=== PATIENT | male | born 1955 | race Two or more races ===

== ENCOUNTER → 2017-05-20 | Outpatient (CLI) | payer MEDICAID ==
[~2017-05-20] MED LIST: ADENOSINE 71 MG in GIVE UN-DILUTED 0 ML IV ONE; ADENOSINE 90 MG/30 ML INJ IV ONE
[2017-05-20 12:08] LABS: Basophils # (auto) 0 uL; Basophils % (auto) 0.6 % (0.0-2.0); Eosinophils # (auto) 0.1 uL; Eosinophils % (auto) 1.9 % (0.0-7.0); Hemoglobin 14.3 g/dL (13.5-17.5); Lymphocytes # (auto) 1.7 uL; Mean Corpuscular Hemoglobin 29.4 pg (28.0-32.0); Mean Corpuscular Hgb Conc. 32.5 g/dL (32.0-36.0); Mean Corpuscular Volume 90.4 fL (80.0-100.0); Monocytes # (auto) 0.6 uL; Monocytes % (auto) 12.6 % (0.0-12.0); Neutrophils # (auto) 2.5 uL; Neutrophils % (auto) 50.9 % (37.0-80.0); Nucleated Red Blood Cells % 0.3 %; Platelet Count (auto) 141 10^3/uL (140-450); Red Blood Cells 4.87 10^6/uL (4.5-5.90); Red Cell Distribution Width 14.9 % (11.8-14.3); White Blood Cell 4.9 10^3/uL (4.4-10.8)
[2017-05-20 12:25] LABS: Prostate Specific Antigen 1.22 ng/mL (0.0-4.0)
[2017-05-20 12:26] LABS: Albumin 3.4 g/dL (3.4-5.0); BUN/Creatinine Ratio 9.9; Bilirubin, Total 0.5 mg/dL (0.2-1.0); Calcium 8.4 mg/dL (8.5-10.1); Potassium 3.5 mmol/L (3.5-5.1)
== END | disposition home or self-care (01) ==
LOC: Rad HDHVI 08:10
PROVIDERS: ATTEND Internal Medicine
DX: E78.5 Hyperlipidemia, unspecified (principal); D64.9 Anemia, unspecified; I10 Essential (primary) hypertension; E03.9 Hypothyroidism, unspecified; E11.9 Type 2 diabetes mellitus without complications; E55.9 Vitamin D deficiency, unspecified; R53.81 Other malaise; R97.20 Elevated prostate specific antigen [PSA]; D51.9 Vitamin B12 deficiency anemia, unspecified; N39.0 Urinary tract infection, site not specified; R47.1 Dysarthria and anarthria; Z87.898 Personal history of other specified conditions; Z86.73 Personal history of transient ischemic attack (TIA), and cerebral infarction without residual deficits
CPT/HCPCS: 36415; 78452; 80053; 80061; 82306; 82607; 83036; 84153; 84403; 84439; 84443; 85025; 93005; 96374; 96375; A9500; J0153

== ENCOUNTER → 2017-06-03 | Outpatient (CLI) | payer MEDICAID | END | disposition home or self-care (01) | LOC: Rad HDHVI 15:46 | PROVIDERS: ATTEND Internal Medicine | DX: I07.1 Rheumatic tricuspid insufficiency (principal); E78.5 Hyperlipidemia, unspecified; I10 Essential (primary) hypertension; E11.9 Type 2 diabetes mellitus without complications; R47.1 Dysarthria and anarthria | CPT/HCPCS: 93306 ==

== ENCOUNTER 2017-06-14 21:26 | Emergency (ER) | payer MEDICAID, MEDICARE ==
[~2017-06-14] VITALS: Ht 182.9 cm; Wt 74.8 kg
[2017-06-14 21:55] VITALS: BP 105/84
[2017-06-16] MEDS ORDERED: LISI-646 PO (03:07)
== END 2017-06-15 00:25 | disposition left against medical advice (07) ==
LOC: ER 21:26
DX: R11.2 Nausea with vomiting, unspecified (principal); Z53.21 Procedure and treatment not carried out due to patient leaving prior to being seen by health care provider
CPT/HCPCS: 71046

== ENCOUNTER 2017-06-15 13:40 | Inpatient (IN) | payer MEDICARE, MEDICAID ==
[~2017-06-15] VITALS: Ht 182.9 cm; Wt 82.0 kg
[2017-06-15 14:43] LABS: Basophils # (auto) 0.3 uL; Eosinophils # (auto) 0.1 uL; Hematocrit 48.1 % (41.0-53.0); Hemoglobin 15.8 g/dL (13.5-17.5); Lymphocytes # (auto) 1.1 uL; Lymphocytes % (auto) 11.1 % (10.0-50.0); Mean Corpuscular Hemoglobin 29.7 pg (28.0-32.0); Mean Corpuscular Hgb Conc. 32.9 g/dL (32.0-36.0); Mean Corpuscular Volume 90.5 fL (80.0-100.0); Monocytes # (auto) 1.6 uL; Monocytes % (auto) 16.9 % (0.0-12.0); Neutrophils # (auto) 6.5 uL; Platelet Count (auto) 200 10^3/uL (140-450); Red Blood Cells 5.32 10^6/uL (4.5-5.90); Red Cell Distribution Width 13.1 % (11.8-14.3); White Blood Cell 9.6 10^3/uL (4.4-10.8)
[2017-06-15 15:06] LABS: Alanine Aminotransferase 80 U/L (16-61); Albumin 3.6 g/dL (3.4-5.0); Alkaline Phosphatase 65 U/L (45-117); Anion Gap 12 (5-15); Aspartate Aminotransferase 56 U/L (15-37); BUN/Creatinine Ratio 12.4; Bilirubin, Total 0.9 mg/dL (0.2-1.0); Blood Urea Nitrogen 18 mg/dL (7-18); Calcium 9.7 mg/dL (8.5-10.1); Carbon Dioxide 26 mmol/L (21-32); Chloride 97 mmol/L (98-107); GFR African American 63 mL/min; GFR Non-African American 52 mL/min; Glucose 117 mg/dL (74-106); Magnesium 2.4 mg/dL (1.6-2.6); Potassium 3.6 mmol/L (3.5-5.1); Sodium 135 mmol/L (136-145); Total Protein 7.8 g/dL (6.4-8.2)
[2017-06-15] MEDS ORDERED: SODIUM CHLORIDE 0.9% 1,000 ML IV ONE (15:44)
[2017-06-15] MEDS ORDERED: SODIUM CHLORIDE 0.9% 1,000 ML IVB ONE (16:38)
[2017-06-15] MEDS ORDERED: PROMETHAZINE HCL 25 MG/ML 1ML IV PRN (16:45)
[2017-06-15 17:12] LABS: Urine Bacteria NONE SEEN /hpf (None Seen); Urine Blood Negative /uL (Negative); Urine Hyaline Cast MOD /lpf (0 - 2); Urine Mucus FEW (None Seen); Urine Specific Gravity 1.031 (1.001-1.035); Urine WBC 4 /hpf (0 - 3)
[2017-06-15] MEDS ORDERED: MORPHINE SULFATE 4 MG/ML SYR/VIAL IV PRN ×2 (18:30)
[2017-06-15] MEDS ORDERED: NITROGLYCERIN 0.4 MG SL TAB SL PRN (18:30)
[2017-06-15] MEDS ORDERED: cefTRIAXone 1GM/10ml IVPUSH 10 ML IV ONE (18:30)
[2017-06-15] MEDS ORDERED: LORazepam 0.5 MG TAB PO PRN (18:30)
[2017-06-15] MEDS ORDERED: LACTULOSE 20Gm/30ML SOLN PO PRN (18:30)
[2017-06-15] MEDS: SODIUM CHLORIDE 0.9% 1,000 ML IV SCH (18:49)
[2017-06-15] MEDS: ENOXAPARIN SOD 40 MG/0.4 ML SYRINGE SC SCH (18:51)
[2017-06-15] MEDS: PANTOPRAZOLE 40 MG TAB PO SCH (18:51)
[2017-06-15 19:03] LABS: INR 0.96 (0.9-1.15); Partial Thromboplastin Time 26.8 sec (22.64-33.71); Prothrombin Time 10.5 sec (9.37-12.3)
[2017-06-15] MEDS: PROMETHAZINE HCL 25 MG/ML 1ML IV PRN (20:22)
[2017-06-15 22:15] VITALS: BP 98/63
[2017-06-15 22:30] VITALS: BP 98/63
[2017-06-16] MEDS ORDERED: LISI-646 PO (03:07)
[2017-06-16 05:00] VITALS: BP 120/75
[2017-06-16] MEDS: SODIUM CHLORIDE 0.9% 1,000 ML IV SCH (05:12)
[2017-06-16] MEDS: PROMETHAZINE HCL 25 MG/ML 1ML IV PRN ×3 (05:15→19:19)
[2017-06-16 07:21] LABS: Albumin 2.7 g/dL (3.4-5.0); BUN/Creatinine Ratio 13.1; Bilirubin, Total 0.7 mg/dL (0.2-1.0); Calcium 8.6 mg/dL (8.5-10.1); Potassium 3.2 mmol/L (3.5-5.1); Total Protein 5.8 g/dL (6.4-8.2)
[2017-06-16 09:00] VITALS: BP 108/72
[2017-06-16] MEDS ORDERED: POTASSIUM CHL 10% (20 MEQ/15ML) 15ml ORAL SOLN PO ONE (09:00)
[2017-06-16] MEDS ORDERED: cefTRIAXone 1GM/10ml IVPUSH 10 ML IV SCH (09:00)
[2017-06-16] MEDS: PANTOPRAZOLE 40 MG TAB PO SCH ×2 (09:43→22:52)
[2017-06-16] MEDS: D5W/ SOD CHL 0.9%/KCL 20MEQ 1,000 ML IV SCH ×2 (09:45→19:08)
[2017-06-16] MEDS: CARVEDILOL 3.125 MG TAB PO SCH ×2 (10:00→22:00)
[2017-06-16 17:00] VITALS: BP 122/75
[2017-06-16] MEDS: ENOXAPARIN SOD 40 MG/0.4 ML SYRINGE SC SCH (18:00)
[2017-06-16 22:00] VITALS: BP 133/89
[2017-06-16] MEDS: TEMAZEPAM 15 MG CAP PO PRN (22:53)
[2017-06-17 05:00] VITALS: BP 160/91
[2017-06-17] MEDS: D5W/ SOD CHL 0.9%/KCL 20MEQ 1,000 ML IV SCH ×2 (05:26→17:48)
[2017-06-17 06:49] LABS: Basophils # (auto) 0.1 uL; Basophils % (auto) 0.8 % (0.0-2.0); Eosinophils # (auto) 0.1 uL; Eosinophils % (auto) 1.1 % (0.0-7.0); Hematocrit 40.5 % (41.0-53.0); Hemoglobin 13.3 g/dL (13.5-17.5); Lymphocytes # (auto) 1.5 uL; Mean Corpuscular Hemoglobin 29.7 pg (28.0-32.0); Mean Corpuscular Hgb Conc. 32.9 g/dL (32.0-36.0); Mean Corpuscular Volume 90.4 fL (80.0-100.0); Monocytes % (auto) 14.2 % (0.0-12.0); Neutrophils # (auto) 4.3 uL; Neutrophils % (auto) 61.9 % (37.0-80.0); Nucleated Red Blood Cells % 0.1 %; Platelet Count (auto) 156 10^3/uL (140-450); Red Blood Cells 4.48 10^6/uL (4.5-5.90); Red Cell Distribution Width 13.1 % (11.8-14.3)
[2017-06-17 07:04] LABS: Potassium 4.2 mmol/L (3.5-5.1)
[2017-06-17 07:08] LABS: Calcium 8.6 mg/dL (8.5-10.1)
[2017-06-17] MEDS ORDERED: MIDAZOLAM HCL 5 MG/ML-1ML VIAL ONE ×2 (08:32→12:40)
[2017-06-17] MEDS ORDERED: LIDOCAINE VISCOUS 2% 15ML UD ONE ×2 (08:32→12:40)
[2017-06-17] MEDS ORDERED: diphenhdrAMINE HCL 50 MG/1 ML VL ONE ×2 (08:32→12:40)
[2017-06-17] MEDS ORDERED: fentaNYL CITRATE 100 MCG/2 ML VL ONE ×2 (08:33→12:40)
[2017-06-17 09:00] VITALS: BP 149/99
[2017-06-17] MEDS: PANTOPRAZOLE 40 MG TAB PO SCH ×2 (09:39→22:01)
[2017-06-17] MEDS: CARVEDILOL 3.125 MG TAB PO SCH ×2 (09:39→22:01)
[2017-06-17] MEDS: LISINOPRIL 20 MG TAB PO SCH (09:40)
[2017-06-17] MEDS: MORPHINE SULFATE 4 MG/ML SYR/VIAL IV PRN ×2 (09:40→17:50)
[2017-06-17] MEDS: PROMETHAZINE HCL 25 MG/ML 1ML IV PRN ×3 (09:40→22:07)
[2017-06-17] MEDS: BOOST PLUS 8 ounce PO SCH ×2 (12:00→17:48)
[2017-06-17 17:11] VITALS: BP 134/87
[2017-06-17] MEDS: ENOXAPARIN SOD 40 MG/0.4 ML SYRINGE SC SCH (17:48)
[2017-06-17 21:30] VITALS: BP 137/77
[2017-06-17] MEDS: TEMAZEPAM 15 MG CAP PO PRN (22:08)
[2017-06-18] MEDS: D5W/ SOD CHL 0.9%/KCL 20MEQ 1,000 ML IV SCH ×4 (01:00→21:00)
[2017-06-18] MEDS: PROMETHAZINE HCL 25 MG/ML 1ML IV PRN (02:16)
[2017-06-18] MEDS: MORPHINE SULFATE 4 MG/ML SYR/VIAL IV PRN (02:22)
[2017-06-18 05:00] VITALS: BP 147/93
[2017-06-18] MEDS ORDERED: FLUT250M2 INH (07:00)
[2017-06-18] MEDS ORDERED: ASP81EC PO (07:00)
[2017-06-18] MEDS ORDERED: CARV3.1240 PO (07:00)
[2017-06-18] MEDS ORDERED: ALLO300T2 PO (07:00)
[2017-06-18 07:22] LABS: Basophils # (auto) 0 uL; Basophils % (auto) 0.2 % (0.0-2.0); Eosinophils # (auto) 0.1 uL; Eosinophils % (auto) 0.9 % (0.0-7.0); Hematocrit 38.9 % (41.0-53.0); Hemoglobin 12.8 g/dL (13.5-17.5); Lymphocytes # (auto) 1.4 uL; Lymphocytes % (auto) 17.5 % (10.0-50.0); Mean Corpuscular Hemoglobin 29.9 pg (28.0-32.0); Mean Corpuscular Volume 90.8 fL (80.0-100.0); Monocytes # (auto) 1.2 uL; Monocytes % (auto) 15.8 % (0.0-12.0); Neutrophils # (auto) 5.1 uL; Neutrophils % (auto) 65.6 % (37.0-80.0); Nucleated Red Blood Cells % 0.1 %; Platelet Count (auto) 148 10^3/uL (140-450); Red Blood Cells 4.29 10^6/uL (4.5-5.90); Red Cell Distribution Width 12.7 % (11.8-14.3); White Blood Cell 7.8 10^3/uL (4.4-10.8)
[2017-06-18 07:37] LABS: BUN/Creatinine Ratio 5.5; Calcium 8.5 mg/dL (8.5-10.1)
[2017-06-18 08:00] VITALS: BP 110/74
[2017-06-18] MEDS: BOOST PLUS 8 ounce PO SCH ×3 (08:00→17:33)
[2017-06-18] MEDS: LISINOPRIL 20 MG TAB PO SCH ×2 (08:35→08:36)
[2017-06-18] MEDS: PANTOPRAZOLE 40 MG TAB PO SCH ×2 (08:35→21:36)
[2017-06-18] MEDS: CARVEDILOL 3.125 MG TAB PO SCH ×2 (08:36→21:36)
[2017-06-18 09:00] VITALS: BP 151/93
[2017-06-18] MEDS ORDERED: KETOROLAC TROMETH 30 MG/ML 1ML VIAL IV SCH (12:00)
[2017-06-18 13:00] VITALS: BP 131/82
[2017-06-18 17:00] VITALS: BP 141/80
[2017-06-18] MEDS: KETOROLAC TROMETH 30 MG/ML 1ML VIAL IV SCH (17:32)
[2017-06-18] MEDS: SUCRALFATE 1 GM/10 ML ORAL SUSP PO SCH ×2 (17:32→21:35)
[2017-06-18] MEDS: ENOXAPARIN SOD 40 MG/0.4 ML SYRINGE SC SCH (17:33)
[2017-06-18] MEDS: TEMAZEPAM 15 MG CAP PO PRN (21:38)
[2017-06-18 22:00] VITALS: BP 118/71
[2017-06-19] MEDS: KETOROLAC TROMETH 30 MG/ML 1ML VIAL IV SCH ×4 (00:43→18:23)
[2017-06-19 05:00] VITALS: BP 114/73
[2017-06-19] MEDS: SUCRALFATE 1 GM/10 ML ORAL SUSP PO SCH ×4 (06:13→23:35)
[2017-06-19] MEDS: D5W/ SOD CHL 0.9%/KCL 20MEQ 1,000 ML IV SCH ×2 (06:13→17:00)
[2017-06-19 07:35] LABS: Basophils # (auto) 0 uL; Basophils % (auto) 0.5 % (0.0-2.0); Eosinophils # (auto) 0.1 uL; Eosinophils % (auto) 1.7 % (0.0-7.0); Hematocrit 38.1 % (41.0-53.0); Hemoglobin 12.5 g/dL (13.5-17.5); Lymphocytes # (auto) 1.5 uL; Lymphocytes % (auto) 17.6 % (10.0-50.0); Mean Corpuscular Hemoglobin 29.7 pg (28.0-32.0); Mean Corpuscular Hgb Conc. 32.8 g/dL (32.0-36.0); Mean Corpuscular Volume 90.4 fL (80.0-100.0); Monocytes # (auto) 1.1 uL; Monocytes % (auto) 12.7 % (0.0-12.0); Neutrophils # (auto) 5.9 uL; Neutrophils % (auto) 67.5 % (37.0-80.0); Platelet Count (auto) 148 10^3/uL (140-450); Red Blood Cells 4.21 10^6/uL (4.5-5.90); Red Cell Distribution Width 12.9 % (11.8-14.3); White Blood Cell 8.7 10^3/uL (4.4-10.8)
[2017-06-19 07:59] LABS: BUN/Creatinine Ratio 8.1; Calcium 8.4 mg/dL (8.5-10.1); Potassium 4.1 mmol/L (3.5-5.1)
[2017-06-19 08:00] VITALS: BP 146/90
[2017-06-19 09:00] VITALS: BP 141/83
[2017-06-19] MEDS: LISINOPRIL 20 MG TAB PO SCH (09:27)
[2017-06-19] MEDS: PANTOPRAZOLE 40 MG TAB PO SCH ×2 (09:27→23:37)
[2017-06-19] MEDS: CARVEDILOL 3.125 MG TAB PO SCH ×2 (09:28→23:36)
[2017-06-19] MEDS: BOOST PLUS 8 ounce PO SCH ×3 (12:00→18:00)
[2017-06-19 13:00] VITALS: BP 138/81
[2017-06-19] MEDS: PROMETHAZINE HCL 25 MG/ML 1ML IV PRN (13:16)
[2017-06-19 18:17] VITALS: BP 127/78
[2017-06-19 21:56] VITALS: BP 133/81
[2017-06-19] MEDS: APIXABAN 5 MG TAB PO SCH (23:36)
[2017-06-20] MEDS: KETOROLAC TROMETH 30 MG/ML 1ML VIAL IV SCH ×3 (00:33→11:42)
[2017-06-20] MEDS: D5W/ SOD CHL 0.9%/KCL 20MEQ 1,000 ML IV SCH (03:00)
[2017-06-20 04:49] VITALS: BP 116/72
[2017-06-20] MEDS: SUCRALFATE 1 GM/10 ML ORAL SUSP PO SCH ×2 (07:00→11:42)
[2017-06-20 07:10] LABS: Basophils # (auto) 0 uL; Basophils % (auto) 0.5 % (0.0-2.0); Eosinophils # (auto) 0.2 uL; Eosinophils % (auto) 2.9 % (0.0-7.0); Hematocrit 38.1 % (41.0-53.0); Hemoglobin 12.5 g/dL (13.5-17.5); Lymphocytes # (auto) 1.2 uL; Lymphocytes % (auto) 17.3 % (10.0-50.0); Mean Corpuscular Hemoglobin 29.4 pg (28.0-32.0); Mean Corpuscular Hgb Conc. 32.8 g/dL (32.0-36.0); Mean Corpuscular Volume 89.7 fL (80.0-100.0); Monocytes # (auto) 0.8 uL; Neutrophils # (auto) 4.7 uL; Neutrophils % (auto) 67.3 % (37.0-80.0); Nucleated Red Blood Cells % 0.1 %; Platelet Count (auto) 156 10^3/uL (140-450); Red Blood Cells 4.25 10^6/uL (4.5-5.90); Red Cell Distribution Width 12.9 % (11.8-14.3); White Blood Cell 6.9 10^3/uL (4.4-10.8)
[2017-06-20 07:30] LABS: BUN/Creatinine Ratio 11.6; Calcium 8.7 mg/dL (8.5-10.1); Potassium 4.4 mmol/L (3.5-5.1)
[2017-06-20 08:00] VITALS: BP 151/91
[2017-06-20] MEDS: APIXABAN 5 MG TAB PO SCH (08:46)
[2017-06-20] MEDS: LISINOPRIL 20 MG TAB PO SCH (08:47)
[2017-06-20] MEDS: CARVEDILOL 3.125 MG TAB PO SCH (08:47)
[2017-06-20] MEDS: PANTOPRAZOLE 40 MG TAB PO SCH (08:47)
[2017-06-20] MEDS: BOOST PLUS 8 ounce PO SCH (08:49)
[2017-06-20 09:00] VITALS: BP 149/82
[2017-06-20 11:04] VITALS: BP 149/82
[2017-06-26] MEDS ORDERED: APIXABAN 5 MG TAB PO SCH (22:00)
== END 2017-06-20 11:55 | disposition home or self-care (01) | DRG 377 ==
LOC: ER 13:40 → TELE 13:41 → TELE-EAST 22:10
PROVIDERS: ADMIT Internal Medicine; ATTEND Internal Medicine Pulmonary Disease
PROC: 0DB68ZX Excision of Stomach, Via Natural or Artificial Opening Endoscopic, Diagnostic (ICD-10-PCS; principal; 2017-06-17 12:29)
DX: K29.71 Gastritis, unspecified, with bleeding (principal); N17.0 Acute kidney failure with tubular necrosis; E44.0 Moderate protein-calorie malnutrition; I69.351 Hemiplegia and hemiparesis following cerebral infarction affecting right dominant side; K76.0 Fatty (change of) liver, not elsewhere classified; E86.9 Volume depletion, unspecified; M70.51 Other bursitis of knee, right knee; I10 Essential (primary) hypertension; K29.91 Gastroduodenitis, unspecified, with bleeding; E78.5 Hyperlipidemia, unspecified; E87.6 Hypokalemia; K20.9 Esophagitis, unspecified; F41.9 Anxiety disorder, unspecified; M10.9 Gout, unspecified; M17.11 Unilateral primary osteoarthritis, right knee; K29.81 Duodenitis with bleeding; Z85.118 Personal history of other malignant neoplasm of bronchus and lung; Z87.828 Personal history of other (healed) physical injury and trauma; Z79.899 Other long term (current) drug therapy; Z68.24 Body mass index [BMI] 24.0-24.9, adult; S32.049D Unspecified fracture of fourth lumbar vertebra, subsequent encounter for fracture with routine healing; S32.029D Unspecified fracture of second lumbar vertebra, subsequent encounter for fracture with routine healing
CPT/HCPCS: 36415; 43239; 71045; 71250; 73562; 74176; 76705; 80048; 80053; 80061; 81001; 82378; 82550; 83690; 83735; 83880; 84443; 84484; 85025; 85610; 85652; 85730; 87086; 93005; 93971; 94761; 96361; 96374; 96375; J1885; J2250